=== PATIENT | female | born 1935 | race Caucasian/White ===

== ENCOUNTER 2017-10-14 17:52 | Emergency (ER) | payer MEDICARE ==
[~2017-10-14] VITALS: Ht 167.6 cm; Wt 81.7 kg
[~2017-10-14 17:52] MED LIST: ASCO500 PO; ASPI81EC PO; ATEN50 PO; Aldactazide 251 EACH PO; BENTYL10 MG; Bacid1 EACH; Bacid1 EACH PO; CALCIT950 PO; CEFD300; COMPAZINE10 MG PO; COQ1050 MG PO; CYAN100 PO; Cardizem CD 12120 MG PO; Cardizem CD 24240 MG PO; Cardura1 MG PO; Coumadin2 MG PO; DIAZ5 PO; DILT120; DILT30 PO; DOXA1 PO; DOXY100 PO; ESTR1 PO; Emla Cream30 GM; FAMO10 PO; FAMO20 PO; FELO2.5 PO; FERR325 PO; FURO20 PO; FURO40 PO; GLIP10 PO; GLIP5; GLIP5 PO; HCTZ PO; HYDACE10B PO; ICAPS AREDS SO1 EACH PO; INSLI75/25; INSLIS75I SC; Kristalose20 GM; Kristalose20 GM PO; LACT10SY PO; LOSA25 PO; LOSA50 PO; MAGOXI400 PO; METFORMIN PO; MULTIVITAMINS1 EACH PO; NAC600 MG PO; Novolog Mix 70-33 M1; ONDA8 PO; OXYACE5T; OXYACE7.5T PO; OXYC10ER PO; OXYC1TAB11 PO; POTCHL10ER PO; PRAV20 PO; PRAVASTATIN PO; PROC10 PO; PROC5 PO; PROM25S PR; Percocet 10-321 EACH PO; Phenergan25 MG PR; SCOPTP; SCOPTP TOP; SODCHL1 PO; SPIR25; VICODIN PO; VITAMIN B122500 MCG PO; Vibramycin100 MG PO; WARF1 PO; WARF3 PO; Zofran Odt8 MG SL
[2017-10-14 20:51] LABS: BASOPHILS ABSOLUTE AUTO 0.02 K/mm3 (0.00-0.23); BASOPHILS PERCENT AUTO 0 % (0-2); EOSINOPHILS PERCENT AUTO 0 % (0-6); Hematocrit 36.4 % (33.0-51.0); Hemoglobin 11.7 g/dL (11.5-16.0); IMMATURE GRAN ABSOLUTE AUTO 0.04 K/mm3 (0.00-0.10); IMMATURE GRAN PERCENT AUTO 1 % (0-1); LYMPHOCYTES ABSOLUTE AUTO 0.96 K/mm3 (0.84-5.20); LYMPHOCYTES PERCENT AUTO 12 % (21-46); MONOCYTES ABSOLUTE AUTO 0.22 K/mm3 (0.16-1.47); MONOCYTES PERCENT AUTO 3 % (4-13); Mean Corpuscular HGB 31.2 pg (26.0-34.0); Mean Corpuscular HGB Conc 32.1 g/dL (31.5-36.5); Mean Corpuscular Volume 97 fL (80-100); NEUTROPHILS ABSOLUTE AUTO 7.05 K/mm3 (1.96-9.15); NEUTROPHILS PERCENT AUTO 85 % (41-73); Platelet Count 199 K/mm3 (150-400); RDW Coefficient Variation 13.7 % (11.7-14.2); RDW Standard Deviation 49.1 fL (35.1-46.3); Red Blood Cell Count 3.75 M/mm3 (3.80-5.20); White Blood Cell Count 8.29 K/mm3 (4.00-11.30)
[2017-10-14 21:01] LABS: Albumin, Blood 3.6 g/dL (3.4-5.0); Albumin/Globulin Ratio 0.8 (0.8-1.8); Bilirubin, Total 0.4 mg/dL (0.1-1.0); Bun/Creatinine Ratio 18.3 (12.0-20.0); Calcium, Blood 9.3 mg/dL (8.5-10.1); Creatinine, Blood 1.26 mg/dL (0.40-1.00); Globulin, Blood 4.6 g/dL (2.2-4.0); Total Protein, Blood 8.2 g/dL (6.4-8.2)
[2017-10-14 21:03] LABS: International Normalized Ratio 1.79; Prothrombin Time Results 18.9 Sec (9.7-11.5)
[2018-08-07] MEDS ORDERED: WARF1 PO (14:35)
[2018-08-07] MEDS ORDERED: Atenolol50 MG PO (14:36)
[2018-08-07] MEDS ORDERED: DRON2.5 PO (14:36)
[2018-08-07] MEDS ORDERED: HYDRA25 PO (14:37)
[2018-08-07] MEDS ORDERED: CHLO4 PO (14:37)
[2018-08-07] MEDS ORDERED: AEREDS PO (14:38)
== END 2017-10-15 00:02 | disposition home or self-care (01) ==
LOC: ER 17:52
PROVIDERS: Physician Assistant
DX: R51 Headache (principal); R11.2 Nausea with vomiting, unspecified; E11.22 Type 2 diabetes mellitus with diabetic chronic kidney disease; E11.65 Type 2 diabetes mellitus with hyperglycemia; I12.9 Hypertensive chronic kidney disease with stage 1 through stage 4 chronic kidney disease, or unspecified chronic kidney disease; N18.9 Chronic kidney disease, unspecified; Z79.4 Long term (current) use of insulin; I48.91 Unspecified atrial fibrillation; Z96.659 Presence of unspecified artificial knee joint; Z90.49 Acquired absence of other specified parts of digestive tract; Z79.01 Long term (current) use of anticoagulants; Z88.1 Allergy status to other antibiotic agents; Z88.2 Allergy status to sulfonamides; Z88.8 Allergy status to other drugs, medicaments and biological substances; Z79.899 Other long term (current) drug therapy
CPT/HCPCS: 36415; 70450; 80053; 82947; 85025; 85610; 96374; 96375; 96376; 99284; J2550; J3010

== ENCOUNTER → 2017-12-19 | Outpatient (CLI) | payer MEDICARE | END | disposition home or self-care (01) | LOC: LAB 17:32 → LAB SHORT 17:32 | DX: E11.22 Type 2 diabetes mellitus with diabetic chronic kidney disease (principal); N95.1 Menopausal and female climacteric states | CPT/HCPCS: 83036; 84443 ==